=== PATIENT | male | born 1950 | race Caucasian/White ===

== ENCOUNTER → 2016-06-21 | Day surgery (SDC) | payer MEDICARE, OTHER ==
[~2016-06-21] MED LIST: ACETAMINOPHEN/HYDROcodone 325 MG/5 MG TAB ONE; BACITRACIN IM FOR SOLN 50,000 UNIT VIAL ONE; BUPIVACAINE/EPINEPHRINE 0.25% PF 30 ML VIAL ONE; GENTAMICIN SULFATE 80 MG/2 ML VIAL ONE; KETOROLAC TROMETHAMINE 30 MG/ML (IVP) VIAL IV PUSH ONE; LACTATED RINGER'S 1000 ML INJ 1,000 ML ONE; MEPERIDINE HCL 25 MG/ML VIAL ONE; MIDAZOLAM HCL 2 MG/2 ML VIAL ONE; ONDANSETRON HCL 4 MG/2 ML VIAL IV PUSH ONE; PROPOFOL 200 MG/20 ML AMP IV ONE; SODIUM CHLOR 0.9% 250 ML BAG IV ONE; SODIUM CHLOR 0.9% 250 ML INJ 250 ML IV ONE; SODIUM CHLORIDE 0.9% 20 ML VIAL ONE; VANCOMYCIN HCL 1000 MG VIAL ONE; ceFAZolin 2 GM PREMIX 50 ML ONE; ceFAZolin INJ 1,000 MG VIAL ONE
--- NOTE | 2016-06-21 09:25 | TN ---
cc: MARY ZHU M.D. DATE OF SURGERY 06/21/2016 PREOPERATIVE DIAGNOSIS Right knee medial compartment severe osteoarthritis, chondromalacia patella, genu varus deformity. POSTOPERATIVE DIAGNOSIS Right knee medial compartment severe osteoarthritis, chondromalacia patella, genu varus deformity. PROCEDURE Right knee medial unicondylar arthroplasty, partial patellectomy SURGEON Rich Zhu MD ASSESSMENT Kurt Zhu MD, Aarti Valdez PA-C SPECIMEN None ESTIMATED BLOOD LOSS Minimal COMPLICATIONS None ANESTHESIA General DRAINS One TOURNIQUET TIME 55 minutes at 250 mmHg CONDITION Stable PLAN OF ACTIVITY As per orders. PROCEDURE My teaching assistant, Mj Zhu MD, was present for the entire surgical case. He was medically necessary for the entire case because of the complexity of the case and to facilitate the performance of the procedure. The CANDLE MOLDER HAND at the back table was not a skill set for this case to manipulate the instruments e.g. the multiple different types of soft tissue retractors, trial iplants, permanent implants including bone cement. The patient was brought in the operating room and had satisfactory general endotracheal anesthesia by Dr. Maciej Marte of the Department of Anesthesia. The right lower extremity was prepped and draped in the usual standard manner. The extremity was exsanguinated by Ernesto wrap and tourniquet inflated to 250 mmHg. A small anterior medial exposure to the knee was made. Dissection carried through the subcutaneous tissue. The patient had extensive varicose veins. These were all individually coagulated. Paramedian capsulotomy was performed. The patient was found to have osteoarthritis involving the medial facet of the patella. An oscillating saw was used to perform partial patellectomy and remove the medial facet of the patella. The patient was found to have severe osteoarthritis involving the medial compartment. Using the StelK[employer] unicondylar arthroplasty system, a guide was used for the posterior condyle. We removed approximately 8 mm. Using a bur, the tibia was prepared to accept a #3 6.5 mm tibial component and accepted. The distal femur was prepared to accept a #2 right medial femoral component. Trial duction was made. The patient was found to have excellent balance in flexion and extension. A medial osteophyte was removed. All trial components were removed. Preparation for cementing was made. One package of high viscosity bone cement was used. First the tibial component was cemented which is a #3 6.5 mm tibial component and then the femoral component which is a #2 right medial femoral component. All excess bone cement was removed. The bone cement was allowed to harden for 13 minutes. The knee was injected with 60 cc of 0.25% Marcaine with epinephrine. The knee was irrigated with copious amounts of Ringer's lactate solution. The tourniquet was deflated. All bleeders were individually coagulated. The wound was closed over an eighth inch Hemovac drain. The capsule was repaired using #2 Tycron suture. Subcutaneous tissues closed in layers with 2-0 Vicryl. Skin was approximated with running subcuticular 3-0 Vicryl. Benzoin and Steri-Strips were applied. The patient tolerated the procedure well and arrived in the Recovery Room in stable and satisfactory condition. MD JENNI Vasquez/SHANDRA /8:58 AM /9:16 AM
== END | disposition home or self-care (01) ==
LOC: ESDC 05:55
PROVIDERS: ATTEND Orthopaedic Surgery Orthopaedic Surgery of the Spine
DX: M17.11 Unilateral primary osteoarthritis, right knee (principal); M22.41 Chondromalacia patellae, right knee; M21.161 Varus deformity, not elsewhere classified, right knee
CPT/HCPCS: 01400; 27446; C1776; J0690; J1580; J1885; J2175; J2250; J2405; J3010; J3370; J7050; J7120